=== PATIENT | female | born 1960 | race Caucasian/White ===

== ENCOUNTER → 2016-11-11 | Outpatient (CLI) | payer OTHER ==
--- NOTE | 2016-11-11 16:29 | MAMMOGRAPHY REPORT ---
BILATERAL DIGITAL SCREENING MAMMOGRAM TOMOSYNTHESIS WITH CAD: 11/11/2016 CLINICAL HISTORY: Routine screening. Patient has no complaints. TECHNIQUE: Breast tomosynthesis in addition to standard 2D mammography was performed. Current study was also evaluated with a Computer Aided Detection (CAD) system. COMPARISON: Comparison is made to exams dated: 11/05/2014 mammogram, 11/04/2013 mammogram, 11/01/2012 mammogram, 06/20/2011 mammogram, and 06/17/2010 mammogram - [facility]. BREAST COMPOSITION: The tissue of both breasts is heterogeneously dense, which may obscure small ma sses. FINDINGS: No suspicious masses, calcifications, or areas of architectural distortion are noted in e ither breast. There has been no significant interval change compared to prior exams. IMPRESSION: ACR BI-RADS CATEGORY 1: NEGATIVE There is no mammographic evidence of malignancy. A 1 year screening mammogram is recommended. The p atient will receive written notification of the results. Approximately 10% of breast cancers are not detected with mammography. A negative mammographic repor t should not delay biopsy if a clinically suggestive mass is present. Giulia Bingham M.D. /:11/11/2016 13:35:18 Perinatal Specialist: Margarita Sanchez, [facility] letter sent: Normal 1/2 BI-RADS Code: ACR BI-RADS Category 1: Negative
== END | disposition home or self-care (01) ==
LOC: C.MAMM 10:26
PROVIDERS: ATTEND Family Medicine
DX: Z12.31 Encounter for screening mammogram for malignant neoplasm of breast (principal)

== ENCOUNTER → 2017-11-14 | Outpatient (CLI) | payer OTHER ==
--- NOTE | 2017-11-14 13:04 | MAMMOGRAPHY REPORT ---
BILATERAL DIGITAL SCREENING MAMMOGRAM TOMOSYNTHESIS WITH CAD: 11/14/2017 CLINICAL HISTORY: Routine screening. Patient has no complaints. TECHNIQUE: Breast tomosynthesis in addition to standard 2D mammography was performed. Current study was also evaluated with a Computer Aided Detection (CAD) system. COMPARISON: Comparison is made to exams dated: 11/11/2016 mammogram, 11/09/2015 mammogram, 11/04/2013 m ammogram, 11/01/2012 mammogram, 06/17/2010 mammogram, and 11/05/2014 mammogram - [facility]. BREAST COMPOSITION: There are scattered areas of fibroglandular density in both breasts. FINDINGS: There is a possible small area of architectural distortion in the approximate 1:00 posteri or right breast, for which additional spot compression tomosynthesis views and possible ultrasound ar e recommended. There is a stable intramammary lymph node in the left upper outer quadrant. No other suspicious mass, architectural distortion or cluster of microcalcifications is seen. IMPRESSION: ACR BI-RADS CATEGORY 0: INCOMPLETE EVALUATION: NEED ADDITIONAL IMAGING EVALUATION The possible small area of architectural distortion in the approximate 1:00 posterior right breast ne eds additional evaluation. The patient will be called to schedule an appointment. Approximately 10% of breast cancers are not detected with mammography. A negative mammographic report should not delay biopsy if a clinically suggestive mass is present. Becky Bush M.D. ay/:11/14/2017 12:35:46 Tile Power Shear Operator: Gaby SANTIZO)(Megan), [facility] letter sent: Addl Imaging 0 BI-RADS Code: ACR BI-RADS Category 0: Incomplete Evaluation: Need Additional Imaging Evaluation
== END | disposition home or self-care (01) ==
LOC: C.MAMM 11:52
PROVIDERS: ATTEND Family Medicine
DX: Z12.31 Encounter for screening mammogram for malignant neoplasm of breast (principal)

== ENCOUNTER → 2017-11-20 | Outpatient (CLI) | payer OTHER ==
--- NOTE | 2017-11-21 07:46 | MAMMOGRAPHY REPORT ---
UNILATERAL RIGHT DIGITAL DIAGNOSTIC MAMMOGRAM TOMOSYNTHESIS AND TARGETED RIGHT ULTRASOUND: 11/20/2017 CLINICAL HISTORY: 57-year-old woman called back from screening mammography for a possible small area of architectural distortion in the 1:00 posterior right breast. The finding is best seen along the p osterior nipple line on the right MLO view. TECHNIQUE: Spot compression right CC and MLO tomosynthesis images were obtained. COMPARISON: Comparison is made to exams dated: 11/14/2017 mammogram, 11/11/2016 mammogram, 11/09/2015 m ammogram, 11/05/2014 mammogram, 11/04/2013 mammogram, and 11/01/2012 mammogram - [facility]. BREAST COMPOSITION: There are scattered areas of fibroglandular density in the right breast. FINDINGS: The additional spot compression tomosynthesis views of the right breast, particularly the s pot compression right MLO view demonstrates partial effacement of the questionable area of distortion seen on screening mammography. There is no definite evidence of a mass, suspicious asymmetry or elisabeth picious microcalcifications. Further evaluation with ultrasound was performed. Targeted ultrasound was performed throughout the superior right breast including the retroareolar mark ast. Sonographically normal tissue is seen without a suspicious solid or cystic mass. No architectu ral distortion is appreciated in real-time ultrasound scanning. IMPRESSION: ACR BI-RADS CATEGORY 0: INCOMPLETE EVALUATION: NEED ADDITIONAL IMAGING EVALUATION, TARG ETED ULTRASOUND ACR BI-RADS CATEGORY 0: INCOMPLETE EVALUATION: NEED ADDITIONAL IMAGING EVALUATION There is partial effacement of the questionable area of architectural distortion in the 1:00 posterio r right breast, without suspicious sonographic correlate identified. Although this could represent n ormal overlapping fibroglandular tissue and fibrolinear markings, given the family history of breast cancer including mother and maternal grandmother diagnosed at age 52, a breast MRI is recommended to exclude the possibility of subtle non-mass enhancement or a subtle infiltrative process. These results and recommendations were discussed with the patient at the time of the exam. Approximately 10% of breast cancers are not detected with mammography. A negative mammographic report should not delay biopsy if a clinically suggestive mass is present. Becky Bush M.D. ay/:11/20/2017 14:05:32 Account Management Assistant: Gaby MEANS(Yehuda)(Megan), [facility] letter sent: Addl Imaging 0 BI-RADS Code: ACR BI-RADS Category 0: Incomplete Evaluation: Need Additional Imaging Evaluation Ult rasound BI-RADS: ACR BI-RADS Category 0: Incomplete Evaluation: Need Additional Imaging Evaluation
== END | disposition home or self-care (01) ==
LOC: C.MAMM 13:24
PROVIDERS: ATTEND Family Medicine
DX: R92.8 Other abnormal and inconclusive findings on diagnostic imaging of breast (principal); Z80.3 Family history of malignant neoplasm of breast

== ENCOUNTER → 2017-11-30 | Outpatient (CLI) | payer OTHER ==
[~2017-11-30] MED LIST: GADAVIST IV PRN
--- NOTE | 2017-12-01 07:45 | MAMMOGRAPHY REPORT ---
BREAST MRI OF BOTH BREASTS : 11/30/2017 CLINICAL HISTORY: Strong family history of breast cancer. There was an area of questionable architec tural distortion in the right breast seen on a recent screening mammogram, which partially effaced on the additional views and an MRI was recommended for further evaluation. COMPARISON: Comparison is made to exams dated: 11/20/2017 ultrasound, 11/20/2017 mammogram, 11/14/2017 ma mmogram, 11/11/2016 mammogram, 11/09/2015 mammogram, and 11/05/2014 mammogram - [facility]. Technique: The patient was placed prone in a dedicated breast imaging coil. Precontrast axial T1-cyrus ghted, axial T2-weighted fat saturation, and axial T1-weighted fat saturation images were obtained. After the administration of 8 mL of Gadavist IV contrast, sequential T1-weighted fat saturation image s were obtained. Subtraction images were obtained of the dynamic contrast enhanced sequences, and 3- D reformations were performed. The [employer] software was used for kinetic analysis. Findings: There is mild background parenchymal enhancement involving bilateral breasts. There are no suspiciou s enhancing masses or areas of abnormal non-mass enhancement seen within either breast. Specifically , there is no abnormal enhancement in the region of the questionable architectural distortion seen wi thin the right breast on recent mammograms. A morphologically normal 6 mm intramammary lymph node is seen within the left 3:00 breast. An oval circumscribed 5 mm enhancing mass with corresponding T2 h yperintensity in the left upper inner quadrant is shown to be dermal in location and is therefore sampson ign and may represent a small epidermal inclusion cyst or other benign skin finding (series [id number] veronica [id number]). There is no evidence of axillary adenopathy. The chest wall structures are negative. Extramammary s oft tissues are unremarkable. IMPRESSION: ACR BI-RADS CATEGORY 2: BENIGN No MRI evidence of malignancy in either breast. Specifically, there is no abnormal enhancement seen within the right breast at the site of the questionable architectural distortion seen mammographicall y; given the lack of corresponding MRI abnormality and given the effacement on the additional spot co mpression views, the finding is benign and compatible with normal fibroglandular tissue. Return to annual mammogram screening schedule is recommended. Giulia Bingham M.D. /:11/30/2017 17:00:30 Software Support Specialist: filler mixer, [facility] letter sent: Normal 1/2 BI-RADS Code: ACR BI-RADS Category 2: Benign
== END | disposition home or self-care (01) ==
LOC: C.MRI 06:34
PROVIDERS: ATTEND Family Medicine
DX: R92.8 Other abnormal and inconclusive findings on diagnostic imaging of breast (principal)